=== PATIENT | male | born 1980 | race Caucasian/White ===

== ENCOUNTER 2023-06-09 08:38 | Emergency (ER) | payer OTHER, SELFPAY ==
[2023-06-09 08:41] VITALS: BP 134/95; PULSE 61; RESP 18; TEMP 36.6; O2SAT 100; BMI 24.4
--- NOTE | 2023-06-09 08:54 | CRLHL7_ITS ---
For Patients: As a result of the Cures Act, medical imaging exams and procedure reports are released immediately into your electronic medical record. You may view this report before your referring provider. If you have questions, please contact your health care provider. INDICATION: FALL INDICATION: Fall. TECHNIQUE: Left elbow, three views. COMPARISON: None FINDINGS: Bones: Alignment is normal. No fractures or bone lesions. Joint spaces: Unremarkable. Soft tissues: Unremarkable. IMPRESSION: There is no acute fracture or malalignment. Dictated by Cam Viera MD @ 06/09/2023 9:45:02 AM Dictated by: Cam Viera MD @ 06/09/2023 09:45:20 (Electronically Signed)
--- NOTE | 2023-06-09 08:54 | CRLHL7_ITS ---
For Patients: As a result of the Cures Act, medical imaging exams and procedure reports are released immediately into your electronic medical record. You may view this report before your referring provider. If you have questions, please contact your health care provider. INDICATION: FALL INDICATION: Fall. TECHNIQUE: Left shoulder, three views. COMPARISON: None FINDINGS: Bones: Alignment is normal. No fractures or bone lesions. Joint spaces: Unremarkable. Soft tissues: Unremarkable. IMPRESSION: No acute fracture or malalignment. Dictated by Cam Viera MD @ 06/09/2023 9:27:39 AM Dictated by: Cam Viera MD @ 06/09/2023 09:27:50 (Electronically Signed)
--- NOTE | 2023-06-09 08:54 | ED_ITS ---
HPI - Extremity Injury (Upper) General Chief Complaint: Extremity Pain/Injury, Upper Stated Complaint: L elbow/shoulder/arm injury Time Seen by Provider: 06/09/23 08:50 History of Present Illness HPI narrative: This 42-year-old male comes in with an injury to his left elbow and shoulder that occurred yesterday. He states that he was jumping on an inflatable item with a bunch of kids and he fell backwards and he jammed his elbow on a ladder on the side of the unit. He has swelling over his left elbow and complains of shoulder pain. He does not report any other injury. He did not hit his head or have loss of consciousness. Related Data Previous Rx's Medication Instructions Recorded hydrocodone 5 mg-acetaminophen 325 1 tab PO Q4-6H PRN pain #20 tabs 06/09/23 mg tablet ketorolac 10 mg tablet 10 mg PO Q8H 5 days #15 tabs 06/09/23 Allergies Allergy/AdvReac Type Severity Reaction Status Date / Time codeine Allergy Verified 06/09/23 08:43 Review of Systems Status of ROS: Reports: 10 or more systems reviewed and unremarkable except as noted in History and below Narrative: Constitutional: No fevers, no weight gain or loss. Eyes: No discharge. No vision changes. HENT: No congestion, no sore throat, no ear pain. Cardiovascular: No chest pain, no palpitations. Respiratory: No shortness of breath, no wheezes, no cough. Gastrointestinal: No abdominal pain, no vomiting, no diarrhea. Genitourinary: No dysuria, no hematuria. Musculoskeletal: Left upper extremity injury as described above. Skin: No rashes, no pruritis. Neurological: No dizziness, weakness, sensory change, speech change. Endo/Heme/Allergies: No bruising or bleeding. No polydipsia. Pysch: no suicidality, no anxiety, no insomnia. All other systems reviewed and are negative. PFSH PFSH Social History Smoking Status: Former smoker Do you use any of these nicotine containing products: None Second hand tobacco smoke exposure: No How often do you have a drink containing alcohol: monthly or less How many standard drinks containing alcohol do you have on a typical day: 1 or 2 How often do you have six or more drinks on one occasion: Never AUDIT-C Alcohol total score: 1 Non-prescribed substance use: denies use service: No Exam Narrative: Exam Narrative: Constitutional: Well-developed, well-nourished, no acute distress. HEENT: Normocephalic, atraumatic. Neck: Normal range of motion. Nontender. Supple. Heart: Regular. No murmurs. Normal rate. Intact distal pulses. Lungs: Clear to auscultation. No chest discomfort. No wheezes, rhonchi, or rale s. Abdomen: Normal bowel sounds. Nontender. No rebound tenderness. Genitalia: Deferred. Back: No midline tenderness. Normal range of motion. Extremities: Swelling over left elbow but no sign of deformity. Pain is diffuse in the left shoulder with no anterior fullness or other sign of deformity. Skin: Intact. No rash. Warm. No erythema or pallor. Neurologic: No altered sensation. No weakness. Alert and oriented. Psychiatric: No suicidality. No anxiety or depression. No insomnia. Nursing notes and vitals signs are reviewed. Const: Vital Signs, click to edit/add: Vital Signs - 24 hr 06/09/23 08:41 Temperature 97.8 F Pulse Rate [Right Pulse Oximeter] 61 Respiratory Rate 18 Blood Pressure [Ri ght Upper Arm] 134/95 H Pulse Oximetry 100 Oxygen Delivery Me thod Room Air Course Vital Signs Vital signs: Initial Vital Signs Temperature 97.8 F 06/09/23 08:41 Temperature Source Temporal Artery Scan 06/09/23 08:41 Pulse Rate 61 06/09/23 08:41 Respiratory Rate 18 06/09/23 08:41 Blood Pressure 134/95 H 06/09/23 08:41 Blood Pressure Mean 108 H 06/09/23 08:41 Blood Pressure Position Sitting 06/09/23 08:41 Pulse Oximetry 100 06/09/23 08:41 Oxygen Delivery Method Room Air 06/09/23 08:41 Vital Signs Temperature 97.8 F 06/09/23 08:41 Pulse Rate 61 06/09/23 08:41 Respiratory Rate 18 06/09/23 08:41 Blood Pressure 134/95 H 06/09/23 08:41 Pulse Oximetry 100 06/09/23 08:41 Oxygen Delivery Method Room Air 06/09/23 08:41 Temperature 97.8 F 06/09/23 08:41 Pulse Rate 61 06/09/23 08:41 Respiratory Rate 18 06/09/23 08:41 Blood Pressure 134/95 H 06/09/23 08:41 Pulse Oximetry 100 06/09/23 08:41 Oxygen Delivery Method Room Air 06/09/23 08:41 MDM - Extremity Injury (Upper) MDM Narrative Medical decision making narrative: This patient comes in with an injury to his left elbow and shoulder that occurred last evening. He has swelling of his elbow and decreased range of motion of both the shoulder and the elbow. X-ray images of these joints are obtained and show no sign of fracture or dislocation. The patient's mechanism of injury does have some suspicion for rotator cuff injury. As he fell hard on his left elbow and jammed his shoulder upwards. He has too much pain to take him through a good exam at this time. The patient received a sling and prescriptions for Toradol and Ciales. He is encouraged to increase activity as tolerated and follow-up with orthopedic clinic for further evaluation and treatment. Imaging Data XR L Shoulder: Radiologist's impression: No acute fracture or malalignment. XR L Elbow: Radiologist's impression: There is no acute fracture or malalignment. Discharge Plan Discharge Clinical Impression: Injury of elbow, left, Injury of shoulder, left Patient Disposition: Home, Self-Care Condition: Unchanged Additional Instructions: Wear sling as needed. Increase activity as tolerated. Take medication as needed and directed. Follow up with orthopedic clinic. Call [phone] for appointment. Return if worsening. Prescriptions: New hydrocodone-acetaminophen 5-325 mg tablet 1 tab PO Q4-6H PRN (Reason: pain) Qty: 20 0RF ketorolac 10 mg tablet 10 mg PO Q8H 5 Days Qty: 15 0RF Follow Up/Referrals: Provider,Not a Local [Primary Care Provider] - Stand Alone Forms: Mobile Location, IP Info Instructions
== END 2023-06-09 10:22 | disposition home or self-care (01) ==
PROVIDERS: Emergency Provider Emergency Medicine Emergency Medical Services
DX: M25.512 Pain in left shoulder (principal); M25.522 Pain in left elbow; W01.0XXA Fall on same level from slipping, tripping and stumbling without subsequent striking against object, initial encounter
CPT/HCPCS: 73030; 73080; 99283; 99284